=== PATIENT | female | born 1990 | race American Indian/Alaskan Native ===

== ENCOUNTER 2016-10-08 12:19 | Emergency (ER) | payer OTHER ==
[2016-10-08 13:09] VITALS: BP 127/83
[2016-10-08 13:35] LABS: Basophils % (Auto) 0.8 % (0.0-1.8); Eosinophils % (Auto) 0.8 % (0.0-4.3); Hematocrit 43.1 % (30.3-42.9); Hemoglobin 14.4 gm/dl (10.1-14.3); Mean Corpuscular HGB Conc 33 % (30-34); Mean Corpuscular Hemoglobin 30 pg (28-32); Mean Corpuscular Volume 89 fl (79-97); Platelet Count 281 K/mm3 (140-440); Red Blood Count 4.85 M/mm3 (3.65-5.03); White Blood Count 8.6 K/mm3 (4.5-11.0)
[2016-10-08 13:54] LABS: Alanine Aminotransferase 13 units/L (7-56); Albumin 3.4 g/dL (3.9-5); Albumin/Globulin Ratio 0.9 %; Alkaline Phosphatase 70 units/L (35-129); Anion Gap 17 mmol/L; Blood Urea Nitrogen 7 mg/dL (7-17); Calcium 8.3 mg/dL (8.4-10.2); Carbon Dioxide 21 mmol/L (22-30); Chloride 105.4 mmol/L (98-107); Glucose 90 mg/dL (65-100); Lipase 16 units/L (13-60); Potassium 3.8 mmol/L (3.6-5.0); Sodium 140 mmol/L (137-145); Total Protein 7.1 g/dL (6.3-8.2)
[2016-10-08 14:48] LABS: Bilirubin,Urine NEG (Negative); Blood,Urine NEG (Negative); Ketones,Urine NEG (Negative); Leukocyte Esterase,Urine NEG (Negative); Mucus,Urine FEW /HPF; Nitrite,Urine NEG (Negative); Protein,Urine <15 mg/dL mg/dL (Negative); Urobilinogen,Urine < 2.0 mg/dL (<2.0)
--- NOTE | 2016-10-09 06:56 | ED Elopement Review ---
ED Pt Elopement review - Results review Lab results: Laboratory Tests 10/08/16 10/08/16 10/08/16 13:12 13:12 13:12 WBC 8.6 RBC 4.85 Hgb 14.4 H Hct 43.1 H MCV 89 MCH 30 MCHC 33 RDW 14.0 Plt Count 281 Lymph % (Auto) 38.5 H [place] % (Auto) 6.9 Eos % (Auto) 0.8 Baso % (Auto) 0.8 Lymph # 3.3 [place] # 0.6 Eos # 0.1 Baso # 0.1 Seg Neutrophils % 53.0 Seg Neutrophils # 4.6 Sodium 140 Potassium 3.8 Chloride 105.4 Carbon Dioxide 21 L Anion Gap 17 BUN 7 Creatinine 0.5 L Estimated GFR > 60 BUN/Creatinine Ratio 14.00 Glucose 90 Calcium 8.3 L Total Bilirubin 0.30 AST 14 ALT 13 Alkaline Phosphatase 70 Total Protein 7.1 Albumin 3.4 L Albumin/Globulin Ratio 0.9 Lipase 16 HCG, Qual Negative Urine Color Urine Turbidity Urine pH Ur Specific [place] Urine Protein Urine Glucose (UA) Urine Ketones Urine Blood Urine Nitrite Urine Bilirubin Urine Urobilinogen Ur Leukocyte Esterase Urine WBC (Auto) Urine RBC (Auto) U Epithel Cells (Auto) Urine Mucus 10/08/16 14:21 WBC RBC Hgb Hct MCV MCH MCHC RDW Plt Count Lymph % (Auto) [place] % (Auto) Eos % (Auto) Baso % (Auto) Lymph # [place] # Eos # Baso # Seg Neutrophils % Seg Neutrophils # Sodium Potassium Chloride Carbon Dioxide Anion Gap BUN Creatinine Estimated GFR BUN/Creatinine Ratio Glucose Calcium Total Bilirubin AST ALT Alkaline Phosphatase Total Protein Albumin Albumin/Globulin Ratio Lipase HCG, Qual Urine Color Yellow Urine Turbidity Clear Urine pH 6.0 Ur Specific [place] 1.021 Urine Protein <15 mg/dl Urine Glucose (UA) Neg Urine Ketones Neg Urine Blood Neg Urine Nitrite Neg Urine Bilirubin Neg Urine Urobilinogen < 2.0 Ur Leukocyte Esterase Neg Urine WBC (Auto) 2.0 Urine RBC (Auto) 5.0 U Epithel Cells (Auto) 2.0 Urine Mucus Few - Call Back decision Pt Call Back Decision: No action required
== END 2016-10-09 01:22 | disposition left against medical advice (07) ==
LOC: ED 12:19
DX: R10.9 Unspecified abdominal pain (principal); Z53.21 Procedure and treatment not carried out due to patient leaving prior to being seen by health care provider
CPT/HCPCS: 36415; 80053; 81001; 83690; 84703; 85025

== ENCOUNTER 2018-08-19 17:16 | Emergency (ER) | payer MEDICAID, OTHER ==
[2018-08-19 19:38] VITALS: BP 125/84
--- NOTE | 2018-08-19 19:49 | Emergency Department Report ---
Chief Complaint: Abdominal Pain Stated Complaint: VOMIT/ABD PAIN/DIZZY Time Seen by Provider: 08/19/18 19:47 - HPI History of Present Illness: N/V -4 days no BM for 3 days suprapubic abd pain tolerating PO intake, drinking water in triage no fever, urinary sx never had before (+) sick contacts at work vomiting - Exam Vital Signs: Vital Signs 08/19/18 19:21 Temperature 97.6 F Pulse Rate 98 H Respiratory 18 Rate Blood Pressure 125/84 O2 Sat by Pulse 99 Oximetry MSE screening note: Focused history and physical exam performed. Due to findings the following was ordered: UA, urine preg, CBC, CMP, lipase ED Disposition for MSE Condition: Stable Instructions: Abdominal Pain (ED)
[2018-08-19 20:22] LABS: Basophils # (Auto) 0.1 K/mm3 (0.0-0.1); Basophils % (Auto) 0.5 % (0.0-1.8); Eosinophils % (Auto) 0.3 % (0.0-4.3); Hematocrit 43.6 % (30.3-42.9); Hemoglobin 14.6 gm/dl (10.1-14.3); Lymphocytes # (Auto) 3.1 K/mm3 (1.2-5.4); Lymphocytes % (Auto) 28.8 % (13.4-35.0); Mean Corpuscular HGB Conc 34 % (30-34); Mean Corpuscular Volume 90 fl (79-97); Monocytes # (Auto) 0.8 K/mm3 (0.0-0.8); Monocytes % (Auto) 7.3 % (0.0-7.3); Platelet Count 351 K/mm3 (140-440); Red Blood Count 4.83 M/mm3 (3.65-5.03); Red Cell Distribution Width 14.3 % (13.2-15.2)
[2018-08-19] MEDS ORDERED: ZOFRAN ODT PO ONE (21:37)
--- NOTE | 2018-08-19 21:42 | Emergency Department Report ---
ED Abdominal Pain HPI - General Chief Complaint: Abdominal Pain Stated Complaint: VOMIT/ABD PAIN/DIZZY Time Seen by Provider: 08/19/18 19:47 Source: patient Mode of arrival: Ambulatory Limitations: No Limitations - History of Present Illness Initial Comments: Patient is a 27-year-old female who presents for bilateral abdominal pain nausea vomiting describes morning sickness last measured was 06/27/2018 states I believe is cardiac patient to a home test which was positive There is no nausea vomiting at this time patient is tolerating by mouth intake MD Complaint: abdominal pain Onset/Timin -: week(s) Location: LLQ, RLQ Radiation: none Migration to: no migration Severity: moderate Severity scale (0 -10): 4 Quality: aching Consistency: intermittent Improves With: nothing Worsens With: eating Associated Symptoms: nausea, vomiting - Related Data LMP Date: 06/27/18 LMP (females 10-50): 2 months Previous Rx's Medication Instructions Recorded Last Taken Type Acetaminophen [Tylenol] 650 mg PO QID #30 capsule 08/19/18 Unknown Rx Nitrofurantoin Monohyd/M-Cryst 100 mg PO BID 7 Days #14 capsule 08/19/18 Unknown Rx [Macrobid 100 mg Capsule] Ondansetron [Zofran Odt] 4 mg PO Q8HR PRN #20 tab.rapdis 08/19/18 Unknown Rx Allergies Allergy/AdvReac Type Severity Reaction Status Date / Time Penicillins Allergy Swelling Verified 08/19/18 17:19 ED Review of Systems ROS: Stated complaint: VOMIT/ABD PAIN/DIZZY Other details as noted in HPI Constitutional: denies: chills, fever Eyes: denies: eye pain, eye discharge, vision change ENT: denies: ear pain, throat pain Respiratory: denies: cough, shortness of breath, wheezing Cardiovascular: denies: chest pain, palpitations Endocrine: no symptoms reported Gastrointestinal: abdominal pain, nausea, vomiting. denies: diarrhea, constipation, hematemesis, melena, hematochezia Genitourinary: denies: urgency, dysuria, frequency, hematuria, discharge, abnormal menses, dyspareunia Musculoskeletal: denies: back pain, joint swelling, arthralgia, myalgia Skin: denies: rash, lesions Neurological: denies: headache, weakness, paresthesias Psychiatric: denies: anxiety, depression Hematological/Lymphatic: denies: easy bleeding, easy bruising ED Past Medical Hx - Past Medical History Previous Medical History?: No - Surgical History Past Surgical History?: No - Social History Smoking Status: Never Smoker Substance Use Type: None - Medications Home Medications: Home Medications Medication Instructions Recorded Confirmed Last Taken Type Acetaminophen [Tylenol] 650 mg PO QID #30 capsule 08/19/18 Unknown Rx Nitrofurantoin Monohyd/M-Cryst 100 mg PO BID 7 Days #14 capsule 08/19/18 Unknown Rx [Macrobid 100 mg Capsule] Ondansetron [Zofran Odt] 4 mg PO Q8HR PRN #20 tab.rapdis 08/19/18 Unknown Rx ED Physical Exam - General Limitations: No Limitations General appearance: alert, in no apparent distress - Head Head exam: Present: atraumatic, normocephalic, normal inspection - Eye Eye exam: Present: normal appearance, PERRL, EOMI Pupils: Present: normal accommodation - ENT ENT exam: Present: normal orophraynx, mucous membranes moist, TM's normal bilaterally, normal external ear exam - Neck Neck exam: Present: normal inspection, full ROM. Absent: tenderness, lymphadenopathy, thyromegaly - Respiratory Respiratory exam: Present: normal lung sounds bilaterally, chest wall tenderness. Absent: respiratory distress, wheezes, rhonchi - Cardiovascular Cardiovascular Exam: Present: regular rate, normal rhythm. Absent: systolic murmur, diastolic murmur, rubs, gallop - GI/Abdominal GI/Abdominal exam: Present: soft, normal bowel sounds - Rectal Rectal exam: Present: deferred - Extremities Exam Extremities exam: Present: normal inspection, full ROM, normal capillary refill. Absent: tenderness, pedal edema, joint swelling, calf tenderness - Back Exam Back exam: Present: normal inspection, full ROM. Absent: tenderness, CVA tenderness (R), CVA tenderness (L), muscle spasm, paraspinal tenderness, v ertebral tenderness, rash noted - Neurological Exam Neurological exam: Present: alert, oriented X3, CN II-XII intact, normal gait, reflexes normal - Psychiatric Psychiatric exam: Present: normal affect, normal mood - Skin Skin exam: Present: warm, dry, intact, normal color. Absent: rash ED Course Vital Signs 08/19/18 08/19/18 19:21 19:50 Temperature 97.6 F 97.6 F Pulse Rate 98 H 91 H Respiratory 18 18 Rate Blood Pressure 125/84 125/84 O2 Sat by Pulse 99 100 Oximetry ED Medical Decision Making - Lab Data Result diagrams: 08/19/18 20:00 08/19/18 20:00 Labs 08/19/18 08/19/18 08/19/18 20:00 20:00 20:28 WBC 10.8 RBC 4.83 Hgb 14.6 H Hct 43.6 H MCV 90 MCH 30 MCHC 34 RDW 14.3 Plt Count 351 Lymph % (Auto) 28.8 [place] % (Auto) 7.3 Eos % (Auto) 0.3 Baso % (Auto) 0.5 Lymph # 3.1 [place] # 0.8 Eos # 0.0 Baso # 0.1 Seg Neutrophils % 63.1 Seg Neutrophils # 6.8 Sodium 134 L Potassium 4.3 Chloride 98.8 Carbon Dioxide 25 Anion Gap 15 BUN 4 L Creatinine 0.4 L Estimated GFR > 60 BUN/Creatinine Ratio 10 Glucose 104 H Calcium 8.8 Total Bilirubin 0.50 AST 13 ALT 8 Alkaline Phosphatase 75 Total Protein 8.0 Albumin 4.1 Albumin/Globulin Ratio 1.1 Lipase 16 Urine Color [place] Urine Turbidity Cloudy Urine pH 6.0 Ur Specific [place] 1.033 H Urine Protein 100 mg/dl Urine Glucose (UA) Neg Urine Ketones Neg Urine Blood Neg Urine Nitrite Neg Urine Bilirubin Neg Urine Urobilinogen 2.0 Ur Leukocyte Esterase Mod Urine WBC (Auto) 27.0 H Urine RBC (Auto) 9.0 U Epithel Cells (Auto) 39.0 H Urine Bacteria (Auto) 1+ Urine Mucus 2+ Urine HCG, Qual Positive A - Medical Decision Making hcg positive, ua; pos luek wbc, bacteria , n/v is resolve pt denies vaginal pain no back pain no cramping no vaginal bleeding no vaginal discharge will tx of UTI during , macrobid, zofran follow up with OBGYN in 2-3 days return to ed if syptoms worsen. pt verbalized agreement and understanding of discharge plan. Critical care attestation.: If time is entered above; I have spent that time in minutes in the direct care of this critically ill patient, excluding procedure time. ED Disposition Clinical Impression: Positive test UTI (urinary tract infection) during Qualifiers: Trimester: first trimester Qualified Code(s): O23.41 - Unspecified infection of urinary tract in , first trimester Disposition: TO HOME OR SELFCARE Is pt being admited?: No Does the pt Need Aspirin: No Condition: Stable Instructions: Abdominal Pain (ED) Prescriptions: Nitrofurantoin Monohyd/M-Cryst [Macrobid 100 mg Capsule] 100 mg PO BID 7 Days #14 capsule Acetaminophen [Tylenol] 650 mg PO QID #30 capsule Ondansetron [Zofran Odt] 4 mg PO Q8HR PRN #20 tab.rapdis PRN Reason: n/v Referrals: PRIMARY CARE, [Primary Care Provider] - 3-5 Days Forms: Work/School Release Form(ED) Time of Disposition: 22:29
[2018-08-19 21:56] LABS: Bacteria,Urine 1+ /HPF (Negative); Bilirubin,Urine NEG (Negative); Blood,Urine NEG (Negative); Color,Urine Amber (Yellow); Mucus,Urine 2+ /HPF
[2018-08-19 22:02] LABS: HCG Qualitative,Urine Positive (Negative)
[2018-08-19 22:15] LABS: Alanine Aminotransferase 8 units/L (7-56); Albumin 4.1 g/dL (3.9-5); BUN/Creatinine Ratio 10; Blood Urea Nitrogen 4 mg/dL (7-17); Calcium 8.8 mg/dL (8.4-10.2); Hemolysis Index 3
== END 2018-08-19 22:40 | disposition home or self-care (01) ==
LOC: ED 17:16
DX: O23.41 Unspecified infection of urinary tract in pregnancy, first trimester (principal); Z3A.01 Less than 8 weeks gestation of pregnancy
CPT/HCPCS: 36415; 80053; 81001; 81025; 83690; 85025; Q0162

== ENCOUNTER 2019-03-29 01:06 | Inpatient (IN) | payer MEDICAID ==
[2019-03-29] MEDS ORDERED: CLEOCIN 900 MG/50 mL 900 MG/50 ML BAG IV SCH (02:00)
[2019-03-29] MEDS ORDERED: NalbUPHINE IV PRN (02:12)
[2019-03-29] MEDS ORDERED: BRETHINE SUB-Q PRN (02:12)
[2019-03-29] MEDS ORDERED: BRETHINE IVP PRN (02:12)
[2019-03-29] MEDS ORDERED: XYLOCAINE 2% INFILTRATI ONE (02:12)
[2019-03-29] MEDS ORDERED: STADOL IV PRN (02:12)
[2019-03-29] MEDS ORDERED: MINERAL OIL PO PRN (02:12)
[2019-03-29] MEDS ORDERED: ZOFRAN IV PRN ×2 (02:12→02:48)
[2019-03-29] MEDS: PITOCin/NS 20 UNIT/1000ML DRIP 20 UNITS/1,000 ML BAG IV SCH ×2 (02:45→03:55)
[2019-03-29] MEDS ORDERED: ANUCORT-HC PR PRN (02:48)
[2019-03-29] MEDS ORDERED: DULCOLAX PR PRN (02:48)
[2019-03-29] MEDS ORDERED: BENADRYL PO PRN (02:48)
[2019-03-29] MEDS ORDERED: LANSINOH TP PRN (02:48)
[2019-03-29] MEDS ORDERED: NORCO 5/325 PO PRN (02:48)
[2019-03-29] MEDS ORDERED: TUCKS PAD TP PRN (02:48)
[2019-03-29] MEDS ORDERED: TYLENOL PO PRN (02:48)
[2019-03-29] MEDS ORDERED: MILK OF MAGNESIA PO PRN (02:48)
[2019-03-29] MEDS ORDERED: PHENERGAN PR PRN (02:48)
[2019-03-29] MEDS ORDERED: PHENERGAN PO PRN (02:48)
--- NOTE | 2019-03-29 02:54 | History and Physical Report ---
History of Present Illness Date of examination: 03/29/19 Date of admission: 03/29/19 01:45 Chief complaint: active labor History of present illness: IUP at term, active labor with precipitous delivery Past History - Obstetrical History : 3 Medications and Allergies Allergies Allergy/AdvReac Type Severity Reaction Status Date / Time Penicillins Allergy Swelling Verified 08/19/18 17:19 Home Medications Medication Instructions Recorded Confirmed Last Taken Type Acetaminophen [Tylenol] 650 mg PO QID #30 capsule 08/19/18 Unknown Rx Nitrofurantoin Monohyd/M-Cryst 100 mg PO BID 7 Days #14 capsule 08/19/18 Unknown Rx [Macrobid 100 mg Capsule] Ondansetron [Zofran Odt] 4 mg PO Q8HR PRN #20 tab.rapdis 08/19/18 Unknown Rx Active Meds: Active Medications Butorphanol Tartrate (Stadol) 2 mg IV Q2H PRN PRN Reason: Pain , Severe (7-10) Ephedrine Sulfate (Ephedrine Sulfate) 10 mg IV Q2M PRN PRN Reason: Hypotension Oxytocin/Sodium Chloride (Pitocin/Ns 20 Unit/1000ml Drip) 20 units in 1,000 mls @ 125 mls/hr IV DIRECT MELA Oxytocin/Sodium Chloride (Pitocin/Ns 30 Unit/500ml) 30 units in 500 mls @ 1 mls/hr IV TITR MELA; Protocol Oxytocin/Sodium Chloride (Pitocin/Ns 30 Unit/500ml) 30 units in 500 mls @ 0 mls/hr IV TITR MELA; Protocol Lactated Ringer's (Lactated Ringers) 1,000 mls @ 125 mls/hr IV DIRECT MELA Clindamycin HCl (Cleocin 900 Mg/50 Ml) 900 mg in 50 mls @ 100 mls/hr IV Q8H MELA; Protocol Mineral Oil (Mineral Oil) 30 ml PO QHS PRN PRN Reason: Constipation Nalbuphine HCl (Nubain) 10 mg IV Q2H PRN PRN Reason: Pain, Moderate (4-6) Ondansetron HCl (Zofran) 4 mg IV Q8H PRN PRN Reason: Nausea And Vomiting Terbutaline Sulfate (Brethine) 0.25 mg SUB-Q ONCE PRN PRN Reason: Hyperstimulation/Hypertonicity Terbutaline Sulfate (Brethine) 0.25 mg IVP ONCE PRN PRN Reason: Hyperstimulation/Hypertonicity - Vital Signs Vital signs: Vital Signs Pulse BP 94 H 141/92 03/29/19 01:28 03/29/19 01:28 Temp Pulse Resp BP Pulse Ox 96.7 F L 95 H 18 146/86 03/29/19 02:03 03/29/19 02:51 03/29/19 02:03 03/29/19 02:51 Results All other labs normal. Assessment and Plan admit cfm vaginal delivery labs GBS prophylaxis if indicated maternal/ well being reassuring overall Quinten Eckert MD
[2019-03-29] MEDS ORDERED: SODIUM CHLORIDE FLUSH SYRINGE 10 ML IV NR (03:00)
[2019-03-29] MEDS ORDERED: PITOCin/NS 30 UNIT/500ML 30 UNITS/500 ML BAG IV SCH ×2 (03:00)
[2019-03-29] MEDS ORDERED: LACTATED RINGERS 1,000 ML IV SCH ×2 (03:00→06:00)
[2019-03-29] MEDS ORDERED: PITOCin/NS 20 UNIT/1000ML DRIP 20 UNITS/1,000 ML BAG IV SCH (03:00)
--- NOTE | 2019-03-29 03:00 | Procedure Note ---
OB Delivery Note - Delivery Date of Delivery: 03/29/19 Surgeon: BETTE YBARRA Estimated blood loss: other (150ml) - Vaginal Delivery position: OA Intrapartum events: precipitous labor- <3hr Delivery induction: none Delivery monitor: none Route of delivery: Delivery placenta: spontaneous Delivery cord: 3 umbilical vessels Episiotomy: none Delivery laceration: none Anesthesia: none Delivery comments: I was called to the room for precipitous delivery of the head. Upon entering the room, head was delivered. I put on gloves and delivered the remainder of the baby atraumatically. Viable --- with weight---and --- No nuchal cord. Anterior shoulder delivered with no complications.baby was bulb suctioned on the bed with spontaneous cry. Cord was clamped and cut and baby handed to waiting validation specialist staff.An intact placenta with three vessel cord delivered spontaneously. Perineum, vagina and cervix intact. All sponge,needle and instrument counts correct. Mom and baby stable to . EBL 150ml. Greg MONTES
[2019-03-29 03:41] LABS: Hematocrit 33.8 % (30.3-42.9); Hemoglobin 11.2 gm/dl (10.1-14.3); Mean Corpuscular HGB Conc 33 % (30-34); Mean Corpuscular Volume 80 fl (79-97); Platelet Count 336 K/mm3 (140-440); Red Blood Count 4.23 M/mm3 (3.65-5.03); Red Cell Distribution Width 13.8 % (13.2-15.2)
[2019-03-29] MEDS: IBUPROFEN PO SCH ×4 (05:40→23:27)
[2019-03-29 05:50] LABS: Bilirubin,Urine NEG (Negative); Blood,Urine SM (Negative); Color,Urine Yellow (Yellow); Mucus,Urine 1+ /HPF
[2019-03-29] MEDS ORDERED: BOOSTRIX IM ONE (06:00)
[2019-03-29 07:34] LABS: Uric Acid 5.9 mg/dL (3.5-7.6)
[2019-03-29 07:37] LABS: Alanine Aminotransferase < 5 units/L (7-56)
[2019-03-29 15:03] LABS: Hematocrit 33.5 % (30.3-42.9); Hemoglobin 10.8 gm/dl (10.1-14.3)
[2019-03-30] MEDS: IBUPROFEN PO SCH ×3 (06:04→18:28)
--- NOTE | 2019-03-30 10:46 | Progress Note ---
Assessment and Plan A: PP Day #1 Stable P: Follow Routine Orders D/C home in the AM RTO in 6 Weeks Subjective - Subjective Date of service: 03/30/19 Patient reports: appetite normal, voiding normally, pain well controlled, flatus, ambulating normally [place]: doing well Objective - Vital Signs Latest vital signs: Vital Signs Temp Pulse Resp BP BP Pulse Ox 03/30/19 00:00 98 F 77 18 102/82 03/29/19 20:00 98.4 F 71 18 105/79 03/29/19 15:25 97.8 F 92 H 20 136/81 97 03/29/19 11:21 98.1 F 88 20 118/63 95 Intake and Output 03/29/19 03/30/19 03/30/19 22:59 06:59 14:59 Intake Total 240 Balance 240 Intake: Oral 240 Other: Total, Intake Amount 240 # Voids Void 1 1 - Exam Breasts: Present: normal Cardiovascular: Present: Regular rate Lungs: Present: Clear to auscultation, Normal air movement Abdomen: Present: normal appearance, soft, normal bowel sounds Uterus: Present: normal, firm, fundal height below umbilicus Extremities: Present: normal
--- NOTE | 2019-03-30 10:47 | Discharge Summary ---
Providers - Providers Date of Admission: 03/29/19 01:45 Date of discharge: 03/31/19 Attending physician: BETTE YBARRA MD Primary care physician: BETTE YBARRA MD Hospitalization Reason for admission: active labor Delivery: Episiotomy: none Laceration: none Other procedures: none complications: none Discharge diagnosis: IUP at term delivered baby: male Condition at discharge: Good Disposition: DC-01 TO HOME OR SELFCARE Plan - Provider Discharge Summary Activity: routine, no sex for 6 weeks, no heavy lifting 4 weeks, no strenuous exercise Diet: routine Instructions: routine Additional instructions: [] Smoking cessation referral if applicable(refer to patient education folder for contact #) [] Refer to [facility]'s [facility] Booklet Call your doctor immediately for: * Fever > 100.5 * Heavy vaginal bleeding ( >1 pad per hour) * Severe persistent headache * Shortness of breath * Reddened, hot, painful area to leg or breast * Drainage or odor from incision. * Keep incision clean and dry at all times and follow doctor's instructions regarding bathing/showering - Follow up plan Follow up: BETTE YBARRA MD [Primary Care Provider] - 6 Weeks
[2019-03-31] MEDS: IBUPROFEN PO SCH ×2 (00:12→05:46)
[2019-03-31 09:27] VITALS: BP 131/82
== END 2019-03-31 18:00 | disposition home or self-care (01) | DRG 775 ==
LOC: TRG 01:06 → LD 01:45 → OB 04:50
PROVIDERS: ADMIT Obstetrics & Gynecology; ATTEND Obstetrics & Gynecology
PROC: 10E0XZZ Delivery of Products of Conception, External Approach (ICD-10-PCS; principal; 2019-03-29)
PROC: 3E0234Z Introduction of Serum, Toxoid and Vaccine into Muscle, Percutaneous Approach (ICD-10-PCS; 2019-03-29)
DX: O62.3 Precipitate labor (principal); Z3A.40 40 weeks gestation of pregnancy; Z37.0 Single live birth; Z23 Encounter for immunization
CPT/HCPCS: 36415; 81001; 83615; 84450; 84460; 84550; 85014; 85018; 85027; 86592; 86850; 86900; 86901; 90471; 90715; G0378; A6250; J2590; J7120